=== PATIENT | female | born 1995 | race Two or more races ===

== ENCOUNTER 2021-05-23 23:36 | Emergency (ER) | payer MEDICAID, OTHER ==
[~2021-05-23] VITALS: Ht 175.3 cm; Wt 68.0 kg
[2021-05-23 23:38] VITALS: BP 142/86
[2021-05-23] MEDS ORDERED: LORAZEPAM 0.5 MG TABLET ONE (23:58)
[2021-05-24] MEDS ORDERED: LORAZEPAM 0.5 MG TABLET PO ONE
--- NOTE | 2021-05-24 | NUR ---
PT LEFT WITHOUT SIGNING D/C PAPERWORK OR PRESCRIPTION. PER PT, "I DONT WANT TO WAIT FOR ANYTHING"
[2021-05-24] MEDS ORDERED: LORA-259 PO (00:10)
== END 2021-05-24 | disposition home or self-care (01) ==
LOC: ER 23:39
DX: F41.0 Panic disorder [episodic paroxysmal anxiety] (principal); R11.10 Vomiting, unspecified; Z79.899 Other long term (current) drug therapy